=== PATIENT | female | born 1975 | race Caucasian/White ===

== ENCOUNTER 2020-05-17 19:00 | Emergency (ER) | payer OTHER ==
[~2020-05-17] VITALS: Ht 177.8 cm; Wt 122.7 kg
--- NOTE | 2020-05-17 19:11 | PHYS DOC ---
Past History Past Surgical History: Hysterectomy, Other Past Surgical History Lt. ankle General Adult EDM: Chief Complaint: MECHANICAL FALL HPI: HPI: " .. I was getting [facility] of [facility]... stepped wrong inverted my Rt. ankle.. It made a pop.. or it hurts so bad... 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 Patient has marked swelling of the right ankle. Does have laxity on anterior draw and stress of ligaments on medial side of ankle. Distal capillary refill is equal to left foot. Distal sensory right foot is equal to left foot. No upper leg tenderness. Patient denies other injury during the fall. Is exposed to multiple sick individuals in her work. No recent fever or chills. Does have history of injury to left ankle requiring surgery to repair a ligament tears. . Review of Systems: Review of Systems: Constitutional: Denies fever or chills Eyes: Denies change in visual acuity HENT: Denies nasal congestion or sore throat Respiratory: Denies cough or shortness of breath Cardiovascular: Denies chest pain or edema GI: Denies abdominal pain, nausea, vomiting, bloody stools or diarrhea : Denies dysuria Musculoskeletal: Complains of severe right ankle and midfoot pain Integument: Denies rash Neurologic: Denies headache, focal weakness or sensory changes Endocrine: Denies polyuria or polydipsia Lymphatic: Denies swollen glands Psychiatric: Denies depression or anxiety Heart Score: Risk Factors: Risk Factors: DM, Current or recent (<one month) smoker, HTN, HLP, family history of CAD, obesity. Risk Scores: Score 0 - 3: 2.5% MACE over next 6 weeks - Discharge Home Score 4 - 6: 20.3% MACE over next 6 weeks - Admit for Clinical Observation Score 7 - 10: 72.7% MACE over next 6 weeks - Early Invasive Strategies Family History: Family History: Noncontributory to presentation Current Medications: Current Meds: See nursing for home medications Allergies: Allergies: Allergies Coded Allergies Type Severity Reaction Last Updated Verified No Known Drug Allergies 05/17/20 No Physical Exam: PE: Constitutional: In acute distress, non-toxic appearance. [] HENT: Normocephalic, atraumatic, bilateral external ears normal, oropharynx moist, no oral exudates, nose normal. [] Eyes: PERRLA, EOMI, conjunctiva normal, no discharge. [] Neck: Normal range of motion, no tenderness, supple, no stridor. [] Cardiovascular:Heart rate regular rhythm, no murmur [] Lungs & Thorax: Bilateral breath sounds clear to auscultation [] Abdomen: Bowel sounds normal, soft, no tenderness, no masses, no pulsatile masses. Old surgery scar Skin: Warm, dry, no erythema, no rash. [] Back: No tenderness, no CVA tenderness. [] Extremities: No tenderness, no cyanosis, no clubbing, ROM intact, no edema. [] Except findings and right ankle exam. Scar in left ankle from previous repair Neurologic: Alert and oriented X 3, normal motor function, normal sensory function, no focal deficits noted. [] Psychologic: Affect anxious , judgement normal, mood normal. [] EKG: EKG: [] Radiology/Procedures: Radiology/Procedures: [][place] [address] IMAGING REPORT Signed PATIENT: MYRNA OGDENUNT: [id number] : 1975 LOCATION: ER AGE: 45 SEX: F EXAM STATUS: REG ER ORD. PHYSICIAN: JESSE LOCKHART MD REASON: injury inversion, PAIN POST. FOOT & ENTIRE ANKLE PROCEDURE: ANKLE RIGHT 3V Study: 1. CR FOOT RIGHT 3V 2. CR ANKLE RIGHT 3V Indication: Inversion injury. Pain. Comparison: None. Findings: Ankle: Tiny focus of mineralization distal to the tip of the medial malleolus only seen on the oblique view is not definitively acute. No displaced fracture seen at the ankle or traumatic malalignment noting the absence of weightbearing. The talar dome is intact. Edematous soft tissues mainly at the lateral ankle. Achilles insertion enthesophyte. Os peroneum. Foot: No acute fracture seen throughout the foot. Maintained joint spaces. Normal osseous mineralization. Impression: 1. No fracture seen at the ankle or throughout the foot. A tiny focus of mineralization at the tip of the medial malleolus is favored chronic. 2. Edematous soft tissues predominantly at the lateral ankle. Electronically signed by: BONITA PEREIRA MD (05/17/2020 8:31 PM) [id number] DICTATED AND SIGNED BY: BONITA PEREIRA MD DATE: 05/17/202030 CC: EJSSE LOCKHART MD; EMELY MERCADO ~ Course & Med Decision Making: Course & Med Decision Making Pertinent Labs and Imaging studies reviewed. (See chart for details) Distal neurovascular intact after application of splint. Patient to uses crutches. Ice and elevation. Tylenol and ibuprofen for pain. For marked pain may have Vicoprofen up to 4 times a day. Follow-up primary care care. Follow- up work comp. Follow-up orthopedics. Consider repeat x-ray in 2 weeks for an undiagnosed occult fracture not appreciated on films tonight. There is some fin dings of chronic changes which may also represent a pull off fracture at distal tip of medial malleolus. Follow-up work comp. Impression: 1. Right ankle sprain [] Dragon Disclaimer: Dragon Disclaimer: This electronic medical record was generated, in whole or in part, using a voice recognition dictation system. Departure Departure: Disposition: 01 HOME/RESIDENCE PRIOR TO ADM Condition: STABLE Scripts Hydrocodone/Ibuprofen (HYDROCODONE-IBUPROFEN 7.5-200 ) 1 Each Tablet 1 TAB PO PRN Q6HRS PRN for PAIN, #30 TAB 0 Refills Prov: JESSE LOCKHART MD 05/17/20 Justification of Admission: Justification of Admission: Justification of Admission Dx: N/A Dragon Disclaimer This chart was dictated in whole or in part using Voice Recognition software in a busy, high-work load, and often noisy Emergency Department environment. It may contain unintended and wholly unrecognized errors or omissions. Dragon Disclaimer This chart was dictated in whole or in part using Voice Recognition software in a busy, high-work load, and often noisy Emergency Department environment. It may contain unintended and wholly unrecognized errors or omissions. JESSE LOCKHART MD May 17, 2020 19:11
[2020-05-17] MEDS ORDERED: KETOROLAC 60 MG/2 ML VIAL. IM ONE (19:15)
[2020-05-17] MEDS ORDERED: HYDR-1179 PO (20:06)
[2020-05-17 20:20] VITALS: BP 110/80
--- NOTE | 2020-05-17 20:34 | RAD ---
Study: 1. CR FOOT RIGHT 3V 2. CR ANKLE RIGHT 3V Indication: Inversion injury. Pain. Comparison: None. Findings: Ankle: Tiny focus of mineralization distal to the tip of the medial malleolus only seen on the oblique view is not definitively acute. No displaced fracture seen at the ankle or traumatic malalignment noting the absence of weightbearing. The talar dome is intact. Edematous soft tissues mainly at the lateral ankle. Achilles insertion enthesophyte. Os peroneum. Foot: No acute fracture seen throughout the foot. Maintained joint spaces. Normal osseous mineralization. Impression: 1. No fracture seen at the ankle or throughout the foot. A tiny focus of mineralization at the tip of the medial malleolus is favored chronic. 2. Edematous soft tissues predominantly at the lateral ankle. Electronically signed by: BONITA PEREIRA MD (05/17/2020 8:31 PM) [id number]
== END 2020-05-17 20:27 | disposition home or self-care (01) ==
LOC: ER 19:00
DX: S93.401A Sprain of unspecified ligament of right ankle, initial encounter (principal); X50.9XXA Other and unspecified overexertion or strenuous movements or postures, initial encounter; Y93.89 Activity, other specified; Y92.89 Other specified places as the place of occurrence of the external cause; Y99.8 Other external cause status
CPT/HCPCS: 73610; 73630; 96372; 99284; J1885